=== PATIENT | female | born 1970 | race Caucasian/White ===

== ENCOUNTER 2024-05-17 20:34 | Emergency (ER) | payer OTHER, MEDICARE ==
[~2024-05-17] VITALS: Ht 157.5 cm; Wt 85.7 kg
[2024-05-17 22:30] VITALS: BP 153/100
== END 2024-05-17 22:30 | disposition home or self-care (01) ==
LOC: ED 20:34
DX: S09.8XXA Other specified injuries of head, initial encounter (principal); I10 Essential (primary) hypertension; V44.6XXA Car passenger injured in collision with heavy transport vehicle or bus in traffic accident, initial encounter
CPT/HCPCS: 99284